=== PATIENT | female | born 1965 | race Caucasian/White ===

== ENCOUNTER → 2018-12-13 15:55 | Outpatient (CLI) | payer OTHER, SELFPAY ==
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
== END ==
PROVIDERS: Visit Provider Physician Assistant
DX: M25.551 Pain in right hip (principal); M47.898 Other spondylosis, sacral and sacrococcygeal region; M16.0 Bilateral primary osteoarthritis of hip
CPT/HCPCS: 72170

== ENCOUNTER → 2019-07-01 09:44 | Outpatient (CLI) | payer OTHER, SELFPAY ==
--- NOTE | 2019-07-01 09:46 | DI.RAD.S_ITS ---
PROCEDURE: XR FOOT RT MIN 3V INDICATIONS: pain and swelling post fall directly on heel TECHNIQUE: 3 views of the foot were acquired. COMPARISON: None. FINDINGS: Bones: No fractures or dislocations. Prominent plantar calcaneal spur. No suspicious bony lesions. Soft tissues: No tibiotalar joint effusion. Achilles tendon appears normal. IMPRESSION: No acute osseous abnormality. Dictated by: Parker Becerra M.D. on 07/01/2019 at 10:56 Approved by: Parker Becerra M.D. on 07/01/2019 at 10:57
== END ==
PROVIDERS: Visit Provider Physician Assistant
DX: M79.671 Pain in right foot (principal); M25.474 Effusion, right foot; M77.31 Calcaneal spur, right foot
CPT/HCPCS: 73630

== ENCOUNTER 2019-09-01 20:47 | Emergency (ER) | payer OTHER, SELFPAY ==
[2019-09-01 20:50] VITALS: BP 169/116; PULSE 65; RESP 18; TEMP 36.5; O2SAT 100
[2019-09-01] MEDS: DOXYCYCLINE HYCLATE 100 MG TABLET PO (21:37)
[2019-09-01 21:39] VITALS: BP 145/93; PULSE 63; RESP 14; O2SAT 97
--- NOTE | 2019-09-01 21:43 | ED_ITS ---
HPI - Skin/Abscess/Foreign Bdy General Chief complaint: Skin/Abscess/Foreign Body Stated complaint: thinks bitten by something left forearm Time Seen by Provider: 09/01/19 21:24 Source: patient Mode of arrival: Ambulatory Limitations: no limitations History of Present Illness HPI narrative: 53-year-old female comes to the emergency department with complaint of being bit on the left forearm. Patient states that yesterday she was putting on her jacket and felt a pain. She started having redness right at the site and then has developed swelling and redness in a circular region surrounding. She states very itchy, there is little bit tingling and localized pain. Patient has not had fevers, no nausea or vomiting, no chest pain or shortness of breath, there is couple of red patches surrounding it. Patient de nies any other symptoms. Related Data Home Medications Medication Instructions Recorded Confirmed fluoxetine 10 mg PO BEDTIME 09/01/19 09/01/19 Previous Rx's Medication Instructions Recorded doxycycline hyclate 100 mg PO BID #14 tab 09/01/19 Allergies Allergy/AdvReac Type Severity Reaction Status Date / Time No Known Drug Allergies Allergy Unknown Verified 09/01/19 20:58 Review of Systems Review of Systems ROS Unobtainable: All systems reviewed & are unremarkable except as noted in HPI and below Constitutional Constitutional: Denies chills, Denies fever(s), Denies lethargy and Denies weakness Neurologic Neurologic: Denies weakness Patient History Social History Smoking Status: Never smoker Social History Smoking Status: Never smoker alcohol intake frequency: 0-2 drinks per day Substance Use Type: does not use Exam Narrative Exam Narrative: GENERAL: Alert and oriented x three, well-nourished, well- appearing female in mild distress. HEENT: Head normocephalic, atraumatic, EOMI, pupils reactive, face symmetric, moist mucous membranes NECK: Supple, full range of motion CARDIOVASCULAR: Regular rate and rhythm without murmurs, rubs or gallops. RESPIRATORY: Breath sounds equal bilaterally, no wheezes rales or rhonchi. ABDOMEN: Soft, nontender. Normoactive bowel sounds all 4 quadrants. No guarding or rebound, rigidity, no mass EXTREMITIES: Normal range of motion, no clubbing or edema. Neurovascularly intact. Patient's left forearm has centralized lesion with a little bit erythema almost appears like there was a sting or puncture, patient has a surrounding we will of erythema that is slightly raised as well as 2 or 3 small patches. The main we will is about 3 x 3 cm in size. There is no drainage, there are no vesicles. There is no streaking up the arm. NEUROLOGICAL: Cranial nerves II through XII grossly intact. Moving all extremities SKIN: Warm, dry, no petechiae, see above Initial Vital Signs Initial Vital Signs: Vital Signs Temperature 97.7 F 09/01/19 20:50 Pulse Rate 65 09/01/19 20:50 Respiratory Rate 18 09/01/19 20:50 Blood Pressure 169/116 H 09/01/19 20:50 Pulse Oximetry 100 09/01/19 20:50 Course Orders Ordered: Discontinued Medications Doxycycline Hyclate (Vibramycin) 100 mg PO NOW ONE Stop: 09/01/19 21:34 Last Admin: 09/01/19 21:37 Dose: 100 mg Documented by: DANNIE Vital Signs Vital signs: Vital Signs - 8 hr 09/01/19 20:50 09/01/19 21:39 Temperature 97.7 F Pulse Rate 65 63 Respiratory Rate 18 14 Blood Pressure 169/116 H Blood Pressure [Right Arm] 145/93 H Pulse Oximetry 100 97 MDM - Skin/Abscess/Foreign Bdy MDM Narrative Medical decision making narrative: Discussed with patient this may just be a localized reaction but unsure what may have been or stone. there is some patchy changes surrounding and she has tried Benadryl with minimal improvement with do a short course of antibiotics. Discharge Plan Departure Patient Disposition: Home Clinical Impression: Insect bite forearm, Cellulitis Discharge Date/Time: 09/01/19 21:52 Instructions: DI for Insect Bites and Stings Activity Restrictions/Additional Instructions: Follow-up with primary care in the next week if her symptoms have not resolved. You may take ibuprofen up to 800 mg every 8 hours and/or Tylenol up to a 1000 mg every 8 hours as needed for pain. You may take Benadryl 1-2 tablets every 8 hours as needed for itching. Take antibiotics as prescribed until they are gone. Avoid sun while taking these antibiotics. Prescription was sent to [place] [facility]. Return to the emergency department for fevers greater 100.4 F, increasing redness, swelling, worsening pain, new numbness, weakness or other new or concerning symptoms. Prescriptions: New doxycycline hyclate 100 mg tablet 100 mg PO BID Qty: 14 RF: 0 No Action fluoxetine 10 mg capsule 10 mg PO BEDTIME RF: 0
== END 2019-09-01 21:52 | disposition home or self-care (01) ==
PROVIDERS: Emergency Provider Emergency Medicine
DX: S50.862A Insect bite (nonvenomous) of left forearm, initial encounter (principal); L03.114 Cellulitis of left upper limb; W57.XXXA Bitten or stung by nonvenomous insect and other nonvenomous arthropods, initial encounter
CPT/HCPCS: 99282; 99283

== ENCOUNTER → 2020-10-15 09:01 | Outpatient (CLI) | payer OTHER, SELFPAY ==
[2020-10-15 09:35] LABS: Hemoglobin A1C% w Est Avg Glu 5.6 % (4.0-6.0)
[2020-10-15 09:55] LABS: Alanine Aminotransferase 31 IU/L (<35); Albumin 4.3 g/dL (3.5-5.0); Albumin Globulin Ratio 1.3 (1.0-2.8); Alkaline Phosphatase 63 U/L (38-126); Aspartate Aminotransferase 31 IU/L (14-36); BUN Creatinine Ratio 16.3 (6-22); Bilirubin Total 0.5 mg/dL (0.2-1.3); Blood Urea Nitrogen 14 mg/dL (7-17); Calcium 9.9 mg/dL (8.4-10.2); Carbon Dioxide 32 mmol/L (22-32); Chloride 103 mmol/L (98-107); Cholesterol 246 mg/dL (140-199); Estimated Glomerular Filt Rate > 60.0 mL/min (>60); Globulin 3.2 g/dL (1.7-4.1); Glucose 94 mg/dL (70-100); HDL Cholesterol 66 mg/dL (40-60); HEMOLYSIS < 15 (0-50); LDL Cholesterol Calculated 156 mg/dL (<100); Potassium 4.3 mmol/L (3.4-5.1); Sodium 138 mmol/L (137-145); Total Protein 7.5 g/dL (6.3-8.2); Triglycerides 118 mg/dL (35-150)
== END ==
PROVIDERS: PCP Internal Medicine; Referring Provider Internal Medicine; Visit Provider Internal Medicine
DX: Z00.00 Encounter for general adult medical examination without abnormal findings (principal)
CPT/HCPCS: 36415; 80053; 80061; 83036

== ENCOUNTER → 2021-08-04 09:33 | Outpatient (CLI) | payer BC, SELFPAY ==
[2021-08-04 10:51] LABS: Cholesterol 239 mg/dL (140-199); HDL Cholesterol 62 mg/dL (40-60); LDL Cholesterol Calculated 142 mg/dL (<100); Triglycerides 174 mg/dL (35-150)
[2021-08-06 11:15] LABS: Cholesterol, Total 245 mg/dL (100-199); HDL-Cholesterol 55 mg/dL (>39); HDL-Particle (Total) 33.4 umol/L (>=30.5); LDL Particle 1726 nmol/L (<1000); LDL-Cholsterol 160 mg/dL (0-99); LP-IR Score 52 (<=45); Small LDL- Particle 596 nmol/L (<=527); Triglycerides 168 mg/dL (0-149)
== END ==
PROVIDERS: PCP Internal Medicine; Referring Provider Internal Medicine; Visit Provider Internal Medicine
DX: E78.5 Hyperlipidemia, unspecified (principal)
CPT/HCPCS: 36415; 80061; 83704

== ENCOUNTER → 2023-08-25 08:03 | Outpatient (CLI) | payer BC, SELFPAY ==
--- NOTE | 2023-08-25 | DI.MG.S_ITS ---
BILATERAL DIGITAL SCREENING MAMMOGRAM 3D/2D WITH CAD: 08/25/2023 CLINICAL: Routine screening. Family history of breast cancer. Comparison is made to exams dated: 09/01/2020 mammogram, 04/30/2019 mammogram, and 08/03/2017 mammogram - Outside facility. There are scattered areas of fibroglandular density in both breasts (category b / 25%-50% glandular tissue). Current study was also evaluated with a Computer Aided Detection (CAD) system. No significant masses, calcifications, or other findings are seen in either breast. There has been no significant interval change. IMPRESSION: NEGATIVE There is no mammographic evidence of malignancy. A 1 year screening mammogram is recommended. Based on the Tyrer Cuzick model (a risk assessment model) the patient's lifetime risk is 9.0% and her 10 year risk is 3.1%. According to the ACR, ACS, and NCCN guidelines, an annual breast MRI exam along with mammogram is recommended if the patient's lifetime risk is 20% or greater. This exam was interpreted at Station ID: [id number]. NOTE: For mammograms, a report in lay terms will be sent to the patient. Approximately 15% of breast malignancies will not be visualized mammographically. In the management of a palpable breast mass, a negative mammogram must not discourage biopsy of a clinically suspicious lesion. Electronically Signed By: Smita fulton/danny:08/25/2023 11:27:05 letter sent: Normal Exam ACR BI-RADS Category 1: Negative [id number]
== END ==
PROVIDERS: PCP Internal Medicine; Referring Provider Internal Medicine; Visit Provider Internal Medicine
DX: Z12.31 Encounter for screening mammogram for malignant neoplasm of breast (principal); Z80.3 Family history of malignant neoplasm of breast
CPT/HCPCS: 77063; 77067